=== PATIENT | male | born 1985 | race Caucasian/White ===

== ENCOUNTER 2022-05-27 21:44 | Emergency (ER) | payer SELFPAY ==
[2022-05-27 21:45] VITALS: BP 138/78; PULSE 96; RESP 20; TEMP 36.6; O2SAT 98
[2022-05-27] MEDS: TETANUS,DIPHTHERIA,AC PERTUSSIS ADULT 0.5 ML (ADACEL) IM (22:01)
--- NOTE | 2022-05-27 22:12 | ED.WOUNDLAC ---
HPI - Wound/Laceration General Chief Complaint: Wound/Laceration Stated Complaint: Laceration to left forearm Time Seen by Provider: 05/27/22 21:50 Source: patient Mode of arrival: ambulatory Limitations: no limitations History of Present Illness HPI narrative: this is a 37-year-old male that presents with a gaping laceration to his left forearm after he was working on his [employer] and inadvertently / accidentally cut his left forearm proximally 3 and half to 4cm in length gaping with no numbness or tingling in his fingers has good range of motion strong brisk radial pulse on the left. Onset (ago): hour(s) Extremity Location: Left: arm ( 3.5cm gaping laceration left forearm) Place: outdoors Patient tetanus UTD: No Context: accidental Associated symptoms: none Related Data Home Medications Medication Instructions Recorded Confirmed No Home Medications 05/27/22 05/27/22 Allergies Allergy/AdvReac Type Severity Reaction Status Date / Time No Known Allergies Allergy Verified 02/22/19 12:34 Review of Systems Review of Systems: All systems reviewed & are unremarkable except as noted in HPI and below PMFSH Past Medical History Medical History Patient denies medical problems Social History Social History Smoking status: Current every day smoker Exam Const: General: healthy appearing Nutritional Appearance: well nourished Orientation/consciousness: patient oriented x3 Limitations: no limitations HENMT: Head: normal to inspection Neck: Neck: normal visual inspection Chest: Chest palpation & inspection: normal inspection of the chest Resp: Effort & Inspection: normal respiratory effort Auscultation: clear to auscultation bilaterally Cardio: Rate: regular rate Rhythm: regular rhythm GI: GI Palp: Yes Soft to palpation Skin: General skin exam: normal color Rashes: no rashes Wounds: wounds noted Other: 3.5cm gaping laceration in the mid forearm on the left Neuro: General: patient oriented x3 Extrem: General: normal to inspection Psych: Mental Status: mental status grossly normal Affect: normal affect Course Course Emergency Course: patient had sutures placed 7 sutures patient tolerated procedure well had 1% lidocaine [id number] which numb the area sufficiently patient tolerated procedure well minimal blood loss. Vital Signs Vital signs: Vital Signs Temperature 36.6 C 04/08/23 21:45 Pulse Rate 96 05/27/22 21:45 Respiratory Rate 20 05/27/22 21:45 Blood Pressure 138/78 05/27/22 21:45 Pulse Oximetry 98 05/27/22 21:45 Oxygen Delivery Room Air 05/27/22 21:45 Temperature 36.6 C 05/27/22 21:45 Pulse Rate 96 05/27/22 21:45 Respiratory Rate 20 05/27/22 21:45 Blood Pressure 138/78 05/27/22 21:45 Pulse Oximetry 98 05/27/22 21:45 Oxygen Delivery Room Air 05/27/22 21:45 Procedures Laceration Laceration 1: Date: 05/27/22 Time: 22:16 Site: upper extremity ( Left forearm) Side (If applicable): left Size (cm): 3.5 Description: linear and clean Depth: simple, single layer Local Anesthetic: lidocaine 1% Amount of anesthesia used (mL): 5 Pre-repair: wound explored and irrigated ====== Skin Level ====== Skin layer closed with: vicryl Size (cm): 5-0 Number of sutures: 7 Technique: simple, interrupted ====== Subcutaneous Layer ====== ====== Muscle Layer ====== ====== Tendon Layer ====== Critical Care Time Critical Care Time Critical Care Time: No Discharge Plan Discharge Clinical Impression: Laceration Patient Disposition: Home, Self-Care Condition: Stable Instructions: Antibiotic Form, Laceration (ED), Care For Your Stitches (ED) Additional Instructions: advised to have sutures removed in approxima
[2022-05-27 22:15] VITALS: BP 130/72; PULSE 80; RESP 18; O2SAT 99
== END 2022-05-27 22:23 | disposition home or self-care (01) ==
PROVIDERS: Emergency Provider Emergency Medicine
DX: S51.812A Laceration without foreign body of left forearm, initial encounter (principal); F17.200 Nicotine dependence, unspecified, uncomplicated; Z23 Encounter for immunization; W45.8XXA Other foreign body or object entering through skin, initial encounter
CPT/HCPCS: 12002; 90471; 90715; 99282

== ENCOUNTER 2023-01-30 01:35 | Emergency (ER) | payer OTHER, SELFPAY ==
[2023-01-30 01:48] VITALS: BP 131/88; PULSE 95; RESP 18; TEMP 37.5; O2SAT 97
--- NOTE | 2023-01-30 01:50 | ED.GENADULT ---
HPI - General Adult General Chief complaint: Fever Stated complaint: fever Time Seen by Provider: 01/30/23 01:45 History of Present Illness HPI narrative: 37yo man presents with moderate pain following vasectomy 3 days ago. New onset fever tonight to 103. Took motrin and tylenol 3 with some relief. No urinary difficulty. No rash. Feels achey all over. Called his urologist number and was told to go to the ED for the fever. Related Data Allergies Allergy/AdvReac Type Severity Reaction Status Date / Time No Known Allergies Allergy Verified 02/22/19 12:34 Review of Systems Review of Systems: All systems reviewed & are unremarkable except as noted in HPI and below Constitutional: Constitutional: Reports chills and Reports fever(s) ENT: Denies dysphagia Cardiovascular: Cardiovascular: Denies chest pain Respiratory: Respiratory: Denies dyspnea Gastrointestinal: Gastrointestinal: Denies abdominal pain Genitourinary: Genitourinary: Denies hematuria, Denies genital lesions, Denies penile discharge and Reports testicular pain PMFSH Past Medical History Medical History Patient denies medical problems Social History Social History Smoking status: Current every day smoker Exam Const: General: healthy appearing and no acute distress Nutritional Appearance: well nourished Eyes: Conjunctivae: conjunctivae normal Resp: Effort & Inspection: normal respiratory effort Cardio: Rate: regular rate GI: Inspection: non-distended : Penis: Yes normal penis Scrotum: scrotal swelling Other: symmetric scrotal swelling without erythema, calor, or tenderness. No rash. Skin: General skin exam: normal color, no jaundice and no pallor Neuro: Other: antalgic wide based gait, steady Extrem: General: no clubbing, cyanosis or edema Course Vital Signs Vital signs: Vital Signs Temperature 37.5 C 01/30/23 01:48 Pulse Rate 95 01/30/23 01:48 Respiratory Rate 18 01/30/23 01:48 Blood Pressure 131/88 01/30/23 01:48 Pulse Oximetry 97 01/30/23 01:48 Oxygen Delivery Room Air 01/30/23 01:48 Temperature 37.5 C 01/30/23 01:48 Pulse Rate 95 01/30/23 01:48 Respiratory Rate 18 01/30/23 01:48 Blood Pressure 131/88 01/30/23 01:48 Pulse Oximetry 97 01/30/23 01:48 Oxygen Delivery Room Air 01/30/23 01:48 Medical Decision Making MDM Narrative Medical decision making narrative: postprocedural pain from vasectomy, incidental fever DDx cystitis, acute viral syndrome, drug fever; there is no evidence of scrotal cellulitis, hematoma, surgical site abscess. Vital Signs Vital Signs: Vital Signs Temperature 37.5 C 01/30/23 01:48 Pulse Rate 95 01/30/23 01:48 Respiratory Rate 18 01/30/23 01:48 Blood Pressure 131/88 01/30/23 01:48 Pulse Oximetry 97 01/30/23 01:48 Oxygen Delivery Room Air 01/30/23 01:48 Temperature 37.5 C 01/30/23 01:48 Pulse Rate 95 01/30/23 01:48 Respiratory Rate 18 01/30/23 01:48 Blood Pressure 131/88 01/30/23 01:48 Pulse Oximetry 97 01/30/23 01:48 Oxygen Delivery Room Air 01/30/23 01:48 Discharge Plan Discharge Clinical Impression: Pain in testicle after procedure, Fever and chills Patient Disposition: Home, Self-Care Condition: Improved Instructions: Antibiotic Form Additional Instructions: Your scrotum appears as normally expected following your procedure. Take the prescribed medications to help your pain. Add the antibiotic Doxycycline as a safety precaution to ensure no infection. You can expect your pain to resolve over the course of the next week. Follow-up with your surgeon as scheduled. Continue to avoid heavy lifting, strenuous activity, sexual activity, and observe any other restrictions that your surgeon gave you until cleared back to full activities. Prescripti
[2023-01-30] MEDS: ACETAMINOPHEN 500 MG TABLET 1000 MG PO (02:04)
[2023-01-30] MEDS: DOXYCYCLINE HYCLATE 100 MG TABLET PO (02:06)
[2023-01-30] MEDS: KETOROLAC (*BKC) 60 MG/2 ML VIAL IM (02:07)
[2023-01-30 02:45] LABS: Appearance Urine Clear (Clear); Bilirubin Urine Negative (Negative); Blood Urine Negative (Negative); Color Urine Yellow (Yellow); Glucose Urine UA Negative (Negative); Ketones Urine Negative (Negative); Leukocyte Esterase Ur Negative LEU/UL (Negative); Nitrate Urine Negative (Negative); Protein Urine Negative (Negative); Urobilinogen Urine 0.2 mg/dL (0.2-1.0)
[2023-01-30 02:48] LABS: Add Urine Microscopic? NO
[2023-01-30 03:02] LABS: SARS-CoV-2 RNA PCR Negative (Negative)
[2023-01-30 03:20] LABS: Influenza A QL RT-PCR Negative (Negative); Influenza B QL RT-PCR Negative (Negative); RSV RNA, RT-PCR Negative (Negative)
[2023-01-30 03:23] VITALS: BP 119/68; PULSE 76; RESP 18; TEMP 36.9; O2SAT 97
== END 2023-01-30 03:35 | disposition home or self-care (01) ==
PROVIDERS: Emergency Provider Emergency Medicine
DX: N50.819 Testicular pain, unspecified (principal); R50.9 Fever, unspecified; F17.210 Nicotine dependence, cigarettes, uncomplicated; Z20.822 Contact with and (suspected) exposure to COVID-19
CPT/HCPCS: 81003; 87637; 96372; 99284; A9270; J1100; J1885